=== PATIENT | female | born 1950 | race Caucasian/White ===

== ENCOUNTER 2017-11-06 14:51 | Emergency (ER) | payer MEDICARE, OTHER ==
[~2017-11-06] VITALS: Ht 175.3 cm; Wt 192.0 kg
[~2017-11-06 14:51] MED LIST: ALBIPROI INH; ALBU90OI6 INH; ANAS1; ANAS1 PO; AZIT250 PO; Anastrozole1 GM MC; Anastrozole1 GM PO; BENZ100A PO; CALCA500CH PO; CHOL10002 PO; COMPLETE MULTI1 EAC1; CYCL10; Calcium 600-D1 EACH PO; Diflucan100 MG PO; ESOM20; ESOM20 PO; ESTR1; ESTR2 PO; HEARTBURN RELI150 M1 PO; IBUP600 PO; Ibuprofen Ib200 MG PO; LEVO750 PO; LEVOTHYROXINE; LEVSOD100; LEVSOD100 PO; MULTIVITAMIN PO; MYOCALM; NYQUIL; Norco 5-325 Ta1 EACH PO; OMEP20ER PO; OMEPRAZOLE; ONDA4ODT; OXYB5 PO; OXYC5; Omeprazole20 M1 PO; PROG100; PROG100 PO; PROP60; PROP60 PO; Peridex480 ML; Prilosec Otc20 MG PO; RANI150 PO; RANITIDINE PO; SIMV40 PO; SOLI5 PO; SUCR1 PO; TIZANIDINE HCL4 MG PO; TYLENOL PO; Transderm-Scop1 EACH TOP; VITAMIN D-32000 UNI1 PO
[2017-11-06 17:36] LABS: BASOPHILS ABSOLUTE AUTO 0.05 K/mm3 (0.00-0.23); BASOPHILS PERCENT AUTO 1 % (0-2); EOSINOPHILS ABSOLUTE AUTO 0.28 K/mm3 (0.00-0.68); EOSINOPHILS PERCENT AUTO 5 % (0-6); Hematocrit 40.2 % (33.0-51.0); Hemoglobin 12.7 g/dL (11.5-16.0); IMMATURE GRAN ABSOLUTE AUTO 0.01 K/mm3 (0.00-0.10); IMMATURE GRAN PERCENT AUTO 0 % (0-1); LYMPHOCYTES ABSOLUTE AUTO 1.82 K/mm3 (0.84-5.20); LYMPHOCYTES PERCENT AUTO 34 % (21-46); MONOCYTES ABSOLUTE AUTO 0.36 K/mm3 (0.16-1.47); MONOCYTES PERCENT AUTO 7 % (4-13); Mean Corpuscular HGB 27.4 pg (26.0-34.0); Mean Corpuscular HGB Conc 31.6 g/dL (31.5-36.5); Mean Corpuscular Volume 87 fL (80-100); Mean Platelet Volume 10.1 fL (9.1-12.4); NEUTROPHILS ABSOLUTE AUTO 2.89 K/mm3 (1.96-9.15); NEUTROPHILS PERCENT AUTO 53 % (41-73); Platelet Count 276 K/mm3 (150-400); RDW Coefficient Variation 14.4 % (11.7-14.2); RDW Standard Deviation 45.7 fL (35.1-46.3); Red Blood Cell Count 4.63 M/mm3 (3.80-5.20); White Blood Cell Count 5.41 K/mm3 (4.00-11.30)
[2017-11-06 17:53] LABS: Alanine Aminotransfer (ALT/SGP 29 U/L (12-78); Albumin, Blood 3.8 g/dL (3.4-5.0); Alk Phos 78 U/L (50-136); Anion Gap 8 mmol/L (6-16); Aspartate Aminotrans (AST/SGOT 18 U/L (12-37); Bilirubin, Total 0.2 mg/dL (0.1-1.0); Blood Urea Nitrogen 11 mg/dL (8-24); Bun/Creatinine Ratio 17.6 (12.0-20.0); CO2, Blood 27 mmol/L (21-32); Calcium, Blood 9.1 mg/dL (8.5-10.1); Chloride, Blood 107 mmol/L (98-108); Creatinine, Blood 0.63 mg/dL (0.40-1.00); Globulin, Blood 3.9 g/dL (2.2-4.0); Glomerular Filtration Rate >60 (60-); Glucose, Blood 96 mg/dL (70-99); Potassium, Blood 3.7 mmol/L (3.5-5.5); Sodium, Blood 142 mmol/L (136-145); Total Protein, Blood 7.7 g/dL (6.4-8.2); Troponin I <0.015 ng/mL (0.000-0.040)
[2017-11-06] MEDS ORDERED: CYCL10 PO (19:19)
[2017-11-06] MEDS ORDERED: GABA300 PO (19:19)
== END 2017-11-06 20:22 | disposition home or self-care (01) ==
LOC: ER 14:51
PROVIDERS: Physician Assistant
DX: R53.83 Other fatigue (principal); R53.1 Weakness; E03.9 Hypothyroidism, unspecified
CPT/HCPCS: 71046; 80053; 84443; 84484; 85025; 93005; 93010; 99284

== ENCOUNTER 2018-03-07 13:01 | Emergency (ER) | payer MEDICARE, OTHER ==
[~2018-03-07] VITALS: Ht 165.1 cm; Wt 74.8 kg
[~2018-03-07 13:01] MED LIST changes: +CYCL10 PO; +GABA300 PO
[2018-03-07] MEDS ORDERED: METO25ER PO (13:25)
[2018-03-07] MEDS ORDERED: LISI20 PO (13:25)
[2018-03-07] MEDS ORDERED: Super Calcium600 MG PO (13:26)
[2018-03-07 13:48] LABS: Alanine Aminotransfer (ALT/SGP 38 U/L (12-78); Albumin, Blood 3.8 g/dL (3.4-5.0); Albumin/Globulin Ratio 1.1 (0.8-1.8); Alk Phos 79 U/L (50-136); Anion Gap 8 mmol/L (6-16); Aspartate Aminotrans (AST/SGOT 27 U/L (12-37); Bilirubin, Total 0.3 mg/dL (0.1-1.0); Blood Urea Nitrogen 15 mg/dL (8-24); Bun/Creatinine Ratio 23.7 (12.0-20.0); CO2, Blood 26 mmol/L (21-32); Chloride, Blood 108 mmol/L (98-108); Creatinine, Blood 0.63 mg/dL (0.40-1.00); Globulin, Blood 3.6 g/dL (2.2-4.0); Glomerular Filtration Rate >60 (60-); Glucose, Blood 88 mg/dL (70-99); Potassium, Blood 4.1 mmol/L (3.5-5.5); Sodium, Blood 142 mmol/L (136-145); Total Protein, Blood 7.4 g/dL (6.4-8.2); Troponin I <0.015 ng/mL (0.000-0.040)
[2018-03-07 14:07] LABS: BASOPHILS ABSOLUTE AUTO 0.07 K/mm3 (0.00-0.23); BASOPHILS PERCENT AUTO 1 % (0-2); EOSINOPHILS ABSOLUTE AUTO 0.58 K/mm3 (0.00-0.68); EOSINOPHILS PERCENT AUTO 10 % (0-6); Hematocrit 38.4 % (33.0-51.0); Hemoglobin 12.4 g/dL (11.5-16.0); IMMATURE GRAN ABSOLUTE AUTO 0.02 K/mm3 (0.00-0.10); IMMATURE GRAN PERCENT AUTO 0 % (0-1); LYMPHOCYTES ABSOLUTE AUTO 1.76 K/mm3 (0.84-5.20); LYMPHOCYTES PERCENT AUTO 31 % (21-46); MONOCYTES ABSOLUTE AUTO 0.41 K/mm3 (0.16-1.47); MONOCYTES PERCENT AUTO 7 % (4-13); Mean Corpuscular HGB 28.9 pg (26.0-34.0); Mean Corpuscular HGB Conc 32.3 g/dL (31.5-36.5); Mean Corpuscular Volume 90 fL (80-100); Mean Platelet Volume 9.8 fL (9.1-12.4); NEUTROPHILS ABSOLUTE AUTO 2.81 K/mm3 (1.96-9.15); NEUTROPHILS PERCENT AUTO 50 % (41-73); Platelet Count 246 K/mm3 (150-400); RDW Coefficient Variation 14.8 % (11.7-14.2); RDW Standard Deviation 49.1 fL (35.1-46.3); Red Blood Cell Count 4.29 M/mm3 (3.80-5.20); White Blood Cell Count 5.65 K/mm3 (4.00-11.30)
== END 2018-03-07 17:13 | disposition home or self-care (01) ==
LOC: ER 13:01
PROVIDERS: Physician Assistant
DX: R07.9 Chest pain, unspecified (principal); E03.9 Hypothyroidism, unspecified; K21.9 Gastro-esophageal reflux disease without esophagitis; E78.5 Hyperlipidemia, unspecified; Z88.5 Allergy status to narcotic agent; Z88.0 Allergy status to penicillin; Z88.1 Allergy status to other antibiotic agents; Z88.8 Allergy status to other drugs, medicaments and biological substances; Z79.899 Other long term (current) drug therapy
CPT/HCPCS: 36415; 71046; 80053; 84484; 85025; 93005; 93010; 99284

== ENCOUNTER 2018-05-08 12:09 | Day surgery (SDC) | payer MEDICARE, OTHER ==
[~2018-05-08] VITALS: Ht 167.6 cm; Wt 85.9 kg
[~2018-05-08 12:09] MED LIST changes: +LISI20 PO; +METO25ER PO; +Super Calcium600 MG PO
== END 2018-05-08 14:50 | disposition home or self-care (01) ==
LOC: ORSCSDS 12:09
PROVIDERS: Student in an Organized Health Care Education/Training Program
PROC: 0DB68ZX Excision of Stomach, Via Natural or Artificial Opening Endoscopic, Diagnostic (ICD-10-PCS; principal; 2018-05-08 13:30)
PROC: 0DB58ZX Excision of Esophagus, Via Natural or Artificial Opening Endoscopic, Diagnostic (ICD-10-PCS; principal; 2018-05-08 13:30)
DX: K21.0 Gastro-esophageal reflux disease with esophagitis (principal); K31.7 Polyp of stomach and duodenum; K29.40 Chronic atrophic gastritis without bleeding; K44.9 Diaphragmatic hernia without obstruction or gangrene; J45.909 Unspecified asthma, uncomplicated; K22.4 Dyskinesia of esophagus; E78.5 Hyperlipidemia, unspecified; E03.9 Hypothyroidism, unspecified; R13.10 Dysphagia, unspecified; E66.9 Obesity, unspecified; Z68.30 Body mass index [BMI] 30.0-30.9, adult; Z79.82 Long term (current) use of aspirin; Z79.899 Other long term (current) drug therapy
CPT/HCPCS: 88305; 88342

== ENCOUNTER 2018-12-20 21:21 | Inpatient (IN) | payer MEDICARE, OTHER ==
[~2018-12-20] VITALS: Ht 167.6 cm; Wt 88.5 kg
[2018-12-20 22:12] LABS: BASOPHILS ABSOLUTE AUTO 0.04 K/mm3 (0.00-0.23); BASOPHILS PERCENT AUTO 0 % (0-2); EOSINOPHILS ABSOLUTE AUTO 0.48 K/mm3 (0.00-0.68); EOSINOPHILS PERCENT AUTO 5 % (0-6); Hematocrit 39.1 % (33.0-51.0); Hemoglobin 12.4 g/dL (11.5-16.0); IMMATURE GRAN ABSOLUTE AUTO 0.03 K/mm3 (0.00-0.10); IMMATURE GRAN PERCENT AUTO 0 % (0-1); LYMPHOCYTES ABSOLUTE AUTO 1.65 K/mm3 (0.84-5.20); LYMPHOCYTES PERCENT AUTO 18 % (21-46); MONOCYTES ABSOLUTE AUTO 0.58 K/mm3 (0.16-1.47); MONOCYTES PERCENT AUTO 6 % (4-13); Mean Corpuscular HGB 29.2 pg (26.0-34.0); Mean Corpuscular HGB Conc 31.7 g/dL (31.5-36.5); Mean Corpuscular Volume 92 fL (80-100); Mean Platelet Volume 9.6 fL (9.1-12.4); NEUTROPHILS ABSOLUTE AUTO 6.63 K/mm3 (1.96-9.15); NEUTROPHILS PERCENT AUTO 71 % (41-73); Platelet Count 230 K/mm3 (150-400); RDW Coefficient Variation 14.1 % (11.7-14.2); RDW Standard Deviation 47.5 fL (35.1-46.3); Red Blood Cell Count 4.25 M/mm3 (3.80-5.20); White Blood Cell Count 9.41 K/mm3 (4.00-11.30)
[2018-12-20 22:30] LABS: Alanine Aminotransfer (ALT/SGP 33 U/L (12-78); Albumin, Blood 3.5 g/dL (3.4-5.0); Alk Phos 67 U/L (50-136); Anion Gap 6 mmol/L (6-16); Aspartate Aminotrans (AST/SGOT 18 U/L (12-37); Bilirubin, Total 0.2 mg/dL (0.1-1.0); Blood Urea Nitrogen 10 mg/dL (8-24); Bun/Creatinine Ratio 16.3 (12.0-20.0); CO2, Blood 26 mmol/L (21-32); Calcium, Blood 8.6 mg/dL (8.5-10.1); Chloride, Blood 110 mmol/L (98-108); Creatinine, Blood 0.62 mg/dL (0.40-1.00); Globulin, Blood 3.6 g/dL (2.2-4.0); Glomerular Filtration Rate >60 (60-); Glucose, Blood 129 mg/dL (70-99); Potassium, Blood 3.6 mmol/L (3.5-5.5); Sodium, Blood 142 mmol/L (136-145); Total Protein, Blood 7.1 g/dL (6.4-8.2); Troponin I <0.015 ng/mL (0.000-0.040)
[2018-12-21 00:06] LABS: Influenza A Negative (NEGATIVE); Influenza B Negative (NEGATIVE)
[2018-12-21] MEDS ORDERED: ALBU3IS INH (00:42)
[2018-12-21] MEDS ORDERED: Prednisone20 MG PO (00:42)
[2018-12-21] MEDS ORDERED: PROBIOTIC ACID1.5 MG PO (00:51)
[2018-12-21 01:47] LABS: Anion Gap 8 mmol/L (6-16); Blood Urea Nitrogen 9 mg/dL (8-24); Bun/Creatinine Ratio 15.6 (12.0-20.0); CO2, Blood 24 mmol/L (21-32); Calcium, Blood 7.8 mg/dL (8.5-10.1); Chloride, Blood 113 mmol/L (98-108); Creatinine, Blood 0.58 mg/dL (0.40-1.00); Glomerular Filtration Rate >60 (60-); Glucose, Blood 148 mg/dL (70-99); Potassium, Blood 3.4 mmol/L (3.5-5.5); Sodium, Blood 145 mmol/L (136-145)
[2018-12-21 07:28] LABS: Hematocrit 39.7 % (33.0-51.0); Hemoglobin 12.4 g/dL (11.5-16.0); Mean Corpuscular HGB Conc 31.2 g/dL (31.5-36.5); Mean Corpuscular Volume 93 fL (80-100); Mean Platelet Volume 9.7 fL (9.1-12.4); Platelet Count 245 K/mm3 (150-400); RDW Coefficient Variation 14.5 % (11.7-14.2); RDW Standard Deviation 48.7 fL (35.1-46.3); Red Blood Cell Count 4.28 M/mm3 (3.80-5.20); White Blood Cell Count 8.64 K/mm3 (4.00-11.30)
--- NOTE | 2018-12-21 07:29 | NUR ---
Rn summary: Patient is alert and oriented. Pt is independant in room. Pt does become very SOB/wheezy with any activity. Pt is unable to speak more than a few words at a time. Breath sounds with expiratory wheezes throughout, respiratory therapy feels like wheezes are from upper airway. Respiratory panel obtained and sent to lab. Pt has had a SHI which improved with tylenol but is returning per pt this am. Pt was able to rest a little from 4-6 this am, states woke up wheezy and coughing. O2 on at 2 liters to assist with air recovery. Call light in reach.
[2018-12-21 07:51] LABS: Alanine Aminotransfer (ALT/SGP 32 U/L (12-78); Albumin, Blood 3.6 g/dL (3.4-5.0); Albumin/Globulin Ratio 0.9 (0.8-1.8); Alk Phos 68 U/L (50-136); Anion Gap 9 mmol/L (6-16); Aspartate Aminotrans (AST/SGOT 10 U/L (12-37); Bilirubin, Total 0.4 mg/dL (0.1-1.0); Blood Urea Nitrogen 9 mg/dL (8-24); Bun/Creatinine Ratio 16.6 (12.0-20.0); CO2, Blood 22 mmol/L (21-32); Chloride, Blood 114 mmol/L (98-108); Creatinine, Blood 0.54 mg/dL (0.40-1.00); Glomerular Filtration Rate >60 (60-); Glucose, Blood 178 mg/dL (70-99); Potassium, Blood 3.7 mmol/L (3.5-5.5); Sodium, Blood 145 mmol/L (136-145); Total Protein, Blood 7.6 g/dL (6.4-8.2)
[2018-12-21 08:06] LABS: Adenovirus Not Detected (NOT DETECT); Bordetella pertussis Not Detected (NOT DETECT); Chlamydophila pneumoniae Not Detected (NOT DETECT); Coronavirus 229E Not Detected (NOT DETECT); Coronavirus HKU1 Not Detected (NOT DETECT); Coronavirus NL63 Not Detected (NOT DETECT); Coronavirus OC43 Not Detected (NOT DETECT); Human Metapneumovirus Not Detected (NOT DETECT); Human Rhinovirus/Enterovirus Detected (NOT DETECT); Influenza A Not Detected (NOT DETECT); Influenza A/2009-H1 Not Detected (NOT DETECT); Influenza A/H1 Not Detected (NOT DETECT); Influenza A/H3 Not Detected (NOT DETECT); Influenza B Not Detected (NOT DETECT); Mycoplasma pneumoniae Not Detected (NOT DETECT); Parainfluenza Virus 1 Not Detected (NOT DETECT); Parainfluenza Virus 2 Not Detected (NOT DETECT); Parainfluenza Virus 3 Not Detected (NOT DETECT); Parainfluenza Virus 4 Not Detected (NOT DETECT); Respiratory Syncytial Virus Not Detected (NOT DETECT)
[2018-12-21 14:43] LABS: PCO2 Arterial 40.4 mmHg (35-45); PO2 Arterial 58.4 mmHg (80-100); pH Blood Arterial 7.36 (7.35-7.45)
--- NOTE | 2018-12-21 18:12 | NUR ---
SHIFT SUMMARY PATIENT A&0 X4, INDEPENDENT. C/O OF SOB THROUGHOUT THE SHIFT. O2 @ 2.5L NC SATS >92%. LUNGS WHEEZY THROUGHOUT. TELE SR @ 124. PATIENT RESTED SOME THIS SHIFT. IS AT THE BEDSIDE. TITRATING O2 TO KEEP SATS >92% PER ORDERS. CONT PULSE OX IN PLACE. NO ACUTE CHANGES THIS SHIFT. RN WILL CONTINUE TO MONITOR.
--- NOTE | 2018-12-22 05:54 | NUR ---
SHIFT SUMMARY PT SLEPT WELL T/O NIGHT. AOX4. VSS. DENIES NAUSEA. REPORTS OCCASIONAL SOB W/EXERTION, HOWEVER PT WAS ABLE TO TOLERATE INDEPENDANTLY SHOWERING WITH SITTING ON SHOWER CHAIR W/O SPO2 DROPPING. SPO2 >90% ON 3L NC, LUNGS HAVE INSPIRATORY/EXPIRATORY WHEEZES T/O LOBES, E/U BREATHING, REPORTS SHE IS ABLE TO COUGH UP MORE MUCUS TODAY & IT IS A LIGHT GREEN IN COLOR. PT REPORTS HAVING A 5/10 HEADACHE THIS AM & WAS MEDICATED 1X W/TYLENOL. CALL LIGHT IS IN REACH & I WILL CONTINUE TO MONITOR.
--- NOTE | 2018-12-22 18:28 | NUR ---
SHIFT SUMMARY TELE SHOWED ST AT A RATE OF 120-140 THIS SHIFT. PT STATED SHE FELT THAT HER CHEST GOT A BIT OF PRESSURE W THE HIGHER HRS, DR RAMAN NOTIFIED. EKG AND TROPONIN NEG. HELD OFF OF DAYTIME RT TREATMENTS WITH QUITE A BIT OF IMPROVEMENT IN HER HR, DOWMN AROUND 105-110. PT WEANED DOWN TO RA THIS SHIFT, LUNGS A BIT WHEEZY. INDEP IN ROOM. TOOK MEDS PRESCRIBED
--- NOTE | 2018-12-23 05:09 | NUR ---
VSS, AFEBRILE, A/O, PT C/O MUSCLE SPASMS IN HER SHOULDER/NECK AREA. MEDICATED PER ORDER. PT ALSO STATES THAT SHE TAKES 600 MG OF GABAPENTIN Q HS AT HOME. SHE REFUSED THE 300MG THAT WAS OFFERED IN THE A.M., AND THE REMAINING 300 MG AT 2100 WAS NOT ENOUGH TO TREAT HER PAIN. PT IS EAGER TO GO HOME AND BELIEVES THAT SHE MIGHT BE D/C'D TODAY. LUNGS ARE STILL VERY TIGHT AND WHEEZY.
[2018-12-23 05:36] LABS: BASOPHILS ABSOLUTE AUTO 0.01 K/mm3 (0.00-0.23); BASOPHILS PERCENT AUTO 0 % (0-2); EOSINOPHILS PERCENT AUTO 0 % (0-6); Hematocrit 36.2 % (33.0-51.0); Hemoglobin 11.3 g/dL (11.5-16.0); IMMATURE GRAN ABSOLUTE AUTO 0.07 K/mm3 (0.00-0.10); IMMATURE GRAN PERCENT AUTO 1 % (0-1); LYMPHOCYTES ABSOLUTE AUTO 0.93 K/mm3 (0.84-5.20); LYMPHOCYTES PERCENT AUTO 7 % (21-46); MONOCYTES ABSOLUTE AUTO 0.37 K/mm3 (0.16-1.47); MONOCYTES PERCENT AUTO 3 % (4-13); Mean Corpuscular HGB 28.8 pg (26.0-34.0); Mean Corpuscular HGB Conc 31.2 g/dL (31.5-36.5); Mean Corpuscular Volume 92 fL (80-100); Mean Platelet Volume 9.8 fL (9.1-12.4); NEUTROPHILS ABSOLUTE AUTO 11.76 K/mm3 (1.96-9.15); NEUTROPHILS PERCENT AUTO 90 % (41-73); Platelet Count 267 K/mm3 (150-400); RDW Coefficient Variation 14.7 % (11.7-14.2); RDW Standard Deviation 50.2 fL (35.1-46.3); Red Blood Cell Count 3.92 M/mm3 (3.80-5.20); White Blood Cell Count 13.14 K/mm3 (4.00-11.30)
[2018-12-23 06:05] LABS: Anion Gap 4 mmol/L (6-16); Blood Urea Nitrogen 24 mg/dL (8-24); Bun/Creatinine Ratio 35.3 (12.0-20.0); CO2, Blood 29 mmol/L (21-32); Calcium, Blood 8.9 mg/dL (8.5-10.1); Chloride, Blood 110 mmol/L (98-108); Creatinine, Blood 0.68 mg/dL (0.40-1.00); Glomerular Filtration Rate >60 (60-); Glucose, Blood 125 mg/dL (70-99); Potassium, Blood 4.3 mmol/L (3.5-5.5); Sodium, Blood 143 mmol/L (136-145)
[2018-12-23] MEDS ORDERED: LEVFLO500 PO (13:48)
[2018-12-23] MEDS ORDERED: PRED10 PO (13:51)
[2018-12-23] MEDS ORDERED: LEVA1.25 INH (13:51)
--- NOTE | 2018-12-23 14:59 | NUR ---
DISCHARGE DISCHARGE INSTRUCTIONS, MEDICATION LIST AND FOLLOW UP APPOINTMENT REVIEWED WITH PT AND HER SPOUSE. QUESTIONS/CONCERNS ANSWERED. NEW SCRIPS WERE FAXED TO [facility] PER PT PREFERENCE. PT AND SPOUSE BOTH VERBALLY INDICATED UNDERSTANDING OF ALL INSTRUCTIONS RECEIVED. PT ESCORTED OUT VIA W/C BY VOLUNTEER
== END 2018-12-23 14:21 | disposition home or self-care (01) | DRG 189 ==
LOC: ER 21:21 → MEDS 21:22 → ER 21:22 → MEDS 21:22 → ER 12-21 02:51 → MEDS 12-21 02:51 → ENPENDDIS 12-23 12:00 → MEDS 12-23 14:21
PROVIDERS: Emergency Medicine; Family Medicine; Internal Medicine; Physician Assistant; ADMIT Internal Medicine
DX: J96.01 Acute respiratory failure with hypoxia (principal); J45.901 Unspecified asthma with (acute) exacerbation; A04.72 Enterocolitis due to Clostridium difficile, not specified as recurrent; J20.9 Acute bronchitis, unspecified; B97.89 Other viral agents as the cause of diseases classified elsewhere; Z85.3 Personal history of malignant neoplasm of breast; E78.5 Hyperlipidemia, unspecified; E03.9 Hypothyroidism, unspecified; I10 Essential (primary) hypertension; G62.9 Polyneuropathy, unspecified; K21.9 Gastro-esophageal reflux disease without esophagitis; R00.0 Tachycardia, unspecified; T48.6X5A Adverse effect of antiasthmatics, initial encounter
CPT/HCPCS: 36415; 36600; 71046; 80048; 80053; 82803; 84484; 85025; 85027; 87070; 87205; 87486; 87581; 87633; 87798; 87804; 93005; 93010; 94640; 94644; 94667; 94668; 94760; 94762; 96361; 96365; 96375; 99284-25; J1650; J1956; J2920; J2930; J3475; J7030; J7512

== ENCOUNTER → 2019-03-27 | Outpatient (CLI) | payer MEDICARE, OTHER ==
[~2019-03-27] MED LIST changes: +ALBU3IS INH; +Aspirin EC81 MG PO; +COMPLETE MULTI1 EAC1 PO; +Coenzyme Q10100 M1 PO; +LEVA1.25 INH; +LEVFLO500 PO; +Neurontin600 MG PO; +PRED10 PO; +PROBIOTIC ACID1.5 MG PO; +Prednisone20 MG PO; +Ranitidine HCl300 MG PO; +Simvastatin40 MG PO; +VITAMIN D32000 UNI1 PO; +Zestril40 MG PO
== END | disposition home or self-care (01) ==
LOC: LAB SHORT 13:27 → LAB EV 13:27
DX: N39.0 Urinary tract infection, site not specified (principal)
CPT/HCPCS: 87077; 87086; 87186

== ENCOUNTER 2019-05-11 06:44 | Day surgery (SDC) | payer MEDICARE, OTHER ==
[~2019-05-11] VITALS: Ht 165.1 cm; Wt 88.1 kg
[2019-05-11] MEDS ORDERED: ANAS1 (07:17)
== END 2019-05-11 08:46 | disposition home or self-care (01) ==
LOC: ORSCSDS 06:44
PROVIDERS: Student in an Organized Health Care Education/Training Program
PROC: 0DB68ZX Excision of Stomach, Via Natural or Artificial Opening Endoscopic, Diagnostic (ICD-10-PCS; principal; 2019-05-11 08:00)
PROC: 0DB58ZX Excision of Esophagus, Via Natural or Artificial Opening Endoscopic, Diagnostic (ICD-10-PCS; principal; 2019-05-11 08:00)
DX: K31.89 Other diseases of stomach and duodenum (principal); K29.70 Gastritis, unspecified, without bleeding; K31.7 Polyp of stomach and duodenum; K44.9 Diaphragmatic hernia without obstruction or gangrene; K21.9 Gastro-esophageal reflux disease without esophagitis; J45.909 Unspecified asthma, uncomplicated; E03.9 Hypothyroidism, unspecified; Z79.899 Other long term (current) drug therapy
CPT/HCPCS: 88305; 88341; 88342; J0461; J2405; J2704; J7120

== ENCOUNTER → 2019-07-06 | Outpatient (CLI) | payer MEDICARE, OTHER | END | disposition home or self-care (01) | LOC: LAB SHORT 08:12 → PLD 08:12 | DX: B35.1 Tinea unguium (principal) | CPT/HCPCS: 88305; 88312 ==

== ENCOUNTER → 2019-08-30 | Outpatient (CLI) | payer MEDICARE, OTHER | END | disposition home or self-care (01) | LOC: LAB EV 18:50 | DX: R19.7 Diarrhea, unspecified (principal) | CPT/HCPCS: 87493 ==

== ENCOUNTER → 2019-09-08 | Outpatient (CLI) | payer MEDICARE, OTHER | END | disposition home or self-care (01) | LOC: LAB SHORT 18:13 → LAB 18:13 | DX: N39.0 Urinary tract infection, site not specified (principal) | CPT/HCPCS: 87077; 87086; 87186 ==

== ENCOUNTER 2019-10-11 23:09 | Emergency (ER) | payer MEDICARE, OTHER ==
[~2019-10-11] VITALS: Ht 165.1 cm; Wt 85.7 kg
== END 2019-10-12 04:06 | disposition home or self-care (01) ==
LOC: ER 23:09
DX: M54.6 Pain in thoracic spine (principal); I10 Essential (primary) hypertension; Z88.1 Allergy status to other antibiotic agents; Z88.5 Allergy status to narcotic agent; Z88.8 Allergy status to other drugs, medicaments and biological substances; Z79.899 Other long term (current) drug therapy; Z79.82 Long term (current) use of aspirin; J45.909 Unspecified asthma, uncomplicated
CPT/HCPCS: 72070; 96372; 99283-25; J1885

== ENCOUNTER 2019-11-20 06:00 | Day surgery (SDC) | payer MEDICARE, OTHER ==
[~2019-11-20] VITALS: Ht 165.1 cm; Wt 86.8 kg
[~2019-11-20 06:00] MED LIST changes: +ANASTROZOLE PO; +Flovent 110 MCG12 GM INH; +MONT10T PO; +PROPIONATE INH; +TERB250 PO
--- NOTE | 2019-11-20 07:08 | NUR ---
History, Chart, Medications and Allergies reviewed before start of procedure. Lungs clear T/O to Auscultation. Patient confirms NPO status and agrees with scheduled surgery. Patient reports completing Chlorhexadine shower X2 prior to admission to hospital. Pre-Op teaching done. Pt verbalizes understanding.
--- NOTE | 2019-11-20 08:38 | NUR ---
11/20/19 0838 Makenna So PLACED BY Frantz FERRIS
--- NOTE | 2019-11-20 10:55 | NUR ---
PT BIOX ABOUT 89% ON ROOM. ENCOURAGED DEEP BREATHING. PT PLACED ON O2 NC AT 3L/M.
--- NOTE | 2019-11-20 11:00 | NUR ---
COFFEE PROVIDED BY HER . PT DENIES PAIN OR NAUSEA AT THIS TIME. Dressing to procedure site clean, dry, intact with no visible drainage, swelling, erythema or bruising noted. PT GIVEN PUDDING TO ATTEMPT TO EAT.
--- NOTE | 2019-11-20 11:20 | NUR ---
PT DENIES PAIN. C/O NAUSEA AT THIS TIME AFTER DRINKING SOME COFFEE. PT GIVEN ZOFRAN 4MG IV. O2 NC DECREASED TO 1LNC TO EVALUATE PTS BREATHING. AT BEDSIDE.
--- NOTE | 2019-11-20 11:23 | NUR ---
PTS BED LAYED BACK FOR COMFORT. COOL WASH CLOTH PLACED TO FOREHEAD.
--- NOTE | 2019-11-20 11:59 | NUR ---
PT TO BATHROOM VIA WHEELCHAIR. REPORTS NAUSEA BETTER BUT NOT RESOLVED. REPORTS PAIN IS 5-6/10 AT THIS TIME. PT GIVEN REGLAN IV AND FENTANYL 25MCG SLOW IV PUSH. PT CONTINUES ON 1L NC AND TAKING DEEP BREATHES. BIOX BETWEEN 91%- 95% ON 1L NC.
--- NOTE | 2019-11-20 12:10 | NUR ---
PT WITH CONTINUED BIOX OF 89-93% ON 1L NC. SPOKE WITH DR. GARZA. ORDER FOR A&A NEB TREATMENT AND INSTRUCTIONS FOR AGGRESIVE INSENTIVE SPIROMETER. PT HAS BEEN ABLE TO EAT 4 SALTINE CRACKERS AND REPORTS NAUSEA IMPROVED.
--- NOTE | 2019-11-20 12:19 | NUR ---
PT GIVEN PO NORCO FOR PAIN AND A&A NEB TREATMENT STARTED.
--- NOTE | 2019-11-20 12:28 | NUR ---
PT GIVEN INSTRUCTIONS ON INSENTIVE SPIROMETER AND ABLE TO DEMONSTRATE. PT REPORTS PAIN AND NAUSEA UNDER CONTROL AT THIS TIMME.
--- NOTE | 2019-11-20 12:35 | NUR ---
REPORT TO BARBER HERNANDEZ TO ASSUME CARE OF PATIENT AT THIS TIME.
--- NOTE | 2019-11-20 13:09 | NUR ---
Discharge instructions reviewed with patient. Patient verbalizes understanding. Copy given to patient to take home. Patient States Post-Procedure ride home has been arranged. Discharged via wheelchair to private car for ride home.
== END 2019-11-20 23:42 | disposition home or self-care (01) ==
LOC: ORSCMMR 06:00 → ORD 07:30 → ORSCMMR 23:42
PROVIDERS: Surgery
PROC: 0WQF0ZZ Repair Abdominal Wall, Open Approach (ICD-10-PCS; principal; 2019-11-20 07:30)
PROC: 8E0W4CZ Robotic Assisted Procedure of Trunk Region, Percutaneous Endoscopic Approach (ICD-10-PCS; principal; 2019-11-20 07:30)
PROC: 0YU64JZ Supplement Left Inguinal Region with Synthetic Substitute, Percutaneous Endoscopic Approach (ICD-10-PCS; principal; 2019-11-20 07:30)
DX: K40.91 Unilateral inguinal hernia, without obstruction or gangrene, recurrent (principal); K42.9 Umbilical hernia without obstruction or gangrene; I10 Essential (primary) hypertension; E78.5 Hyperlipidemia, unspecified; J45.909 Unspecified asthma, uncomplicated; E03.9 Hypothyroidism, unspecified; Z86.73 Personal history of transient ischemic attack (TIA), and cerebral infarction without residual deficits; Z79.899 Other long term (current) drug therapy; Z79.82 Long term (current) use of aspirin
CPT/HCPCS: 49651; 49585; S2900; A9270-GY; C1781; J0690; J1100; J1885; J2250; J2405; J2704; J2710; J2765; J3010; J7120

== ENCOUNTER → 2019-11-26 | Outpatient (CLI) | payer MEDICARE, OTHER ==
[2019-11-26 11:32] LABS: Source, Urine Clean Catch
[2019-11-26 12:53] LABS: Bilirubin, Urine Neg (Neg); Blood, Urine Neg (Neg); Glucose Qualitative, Urine Neg (Neg); Ketones, Urine Neg (Neg); Leukocyte Esterase, Urine Neg (Neg); Nitrite, Urine Neg (Neg); Protein, Urine Neg (Neg); Specific Gravity, Urine 1.015 (1.003-1.022); Urobilinogen, Urine NORM (Normal)
[2019-11-26 13:02] LABS: Appearance, Urine Clear (Clear); Color, Urine Yellow (P-Yellow)
== END | disposition home or self-care (01) ==
LOC: LAB 11:29 → LAB SHORT 11:29
PROVIDERS: Surgery
DX: N99.89 Other postprocedural complications and disorders of genitourinary system (principal); R39.89 Other symptoms and signs involving the genitourinary system; R35.0 Frequency of micturition
CPT/HCPCS: 81003

== ENCOUNTER → 2020-04-26 | Outpatient (CLI) | payer MEDICARE, OTHER | LOC: LAB SHORT 17:40 → LAB EV 17:40 | DX: Z20.828 Contact with and (suspected) exposure to other viral communicable diseases (principal) | CPT/HCPCS: U0003 ==

== ENCOUNTER → 2020-07-18 | Outpatient (CLI) | payer MEDICARE, OTHER ==
[2020-07-19 15:07] LABS: HPV 16 Negative (Negative); HPV 18 Negative (Negative); HPV OTHER HR TYPES Negative (Negative)
== END | disposition home or self-care (01) ==
LOC: LAB SHORT 12:20 → LAB 12:20
PROVIDERS: Obstetrics & Gynecology
DX: Z01.419 Encounter for gynecological examination (general) (routine) without abnormal findings (principal)
CPT/HCPCS: 87624; G0123

== ENCOUNTER 2020-08-30 11:42 | Day surgery (SDC) | payer MEDICARE, OTHER ==
[~2020-08-30] VITALS: Ht 165.1 cm; Wt 79.3 kg
[2020-08-30] MEDS ORDERED: ANASTROZOLE1 M1 PO (12:05)
--- NOTE | 2020-08-30 13:24 | NUR ---
08/30/20 1324 Kylee Torres SIMETHICONE USED DURING PROCEDURE.
== END 2020-08-30 14:16 | disposition home or self-care (01) ==
LOC: ORSCSDS 11:42
PROVIDERS: Surgery
PROC: 0DBC8ZX Excision of Ileocecal Valve, Via Natural or Artificial Opening Endoscopic, Diagnostic (ICD-10-PCS; principal; 2020-08-30 13:00)
DX: Z12.11 Encounter for screening for malignant neoplasm of colon (principal); Z86.010 Personal history of colon polyps; K57.30 Diverticulosis of large intestine without perforation or abscess without bleeding; K64.8 Other hemorrhoids; I10 Essential (primary) hypertension; E03.9 Hypothyroidism, unspecified; K21.9 Gastro-esophageal reflux disease without esophagitis; J45.909 Unspecified asthma, uncomplicated; Z79.82 Long term (current) use of aspirin; Z79.899 Other long term (current) drug therapy
CPT/HCPCS: 88305; J2405; J2704; J7120

== ENCOUNTER 2020-10-06 10:51 | Day surgery (SDC) | payer MEDICARE, OTHER ==
[~2020-10-06] VITALS: Ht 165.1 cm; Wt 79.2 kg
[~2020-10-06 10:51] MED LIST changes: +ANASTROZOLE1 M1 PO; +BUDE.25 INH; +CALCIUM PO; +VITAMIN D310 MC4 PO
--- NOTE | 2020-10-06 12:10 | NUR ---
Ambulatory in Day Surgery History, Chart, Medications and Allergies reviewed before start of procedure.Lungs clear T/O to Auscultation. Patient confirms NPO status and agrees with scheduled surgery. Pre-Op teaching done. Pt verbalizes understanding.
--- NOTE | 2020-10-06 17:33 | NUR ---
REPORT RECEIVED FROM APOORVA JAIMESU RN
--- NOTE | 2020-10-06 18:27 | NUR ---
POST OP: PT TO UNIT AT 1745, UPON ASSESSMENT PT IS DROWSY, AWAKENS TO VOICE. ORIENTED X4 AND EASILY GOES BACK TO SLEEP. SURGICAL SITES WNL. VSS. PT AT BEDSIDE. CALL LIGHT IN REACH, WILL CTM AND REPORT TO RICCARDO RN.
--- NOTE | 2020-10-07 04:27 | NUR ---
SHIFT SUMMARY: PT POD#1 FOR LAP HERNIA REPAIR. A&O X4. DROWSY IN BEGINNING OF SHIFT BUT NOW MORE ALERT. ABD SOFT, LAP SITES X5 C/D/I WITH WOUND GLUE. HYPOACTIVE BT THROUGHOUT. PT REPORTS PASSING A SMALL AMOUNT OF FLATUS. PT REPORTING MILD TO MODERATE PAIN IN ABD. MOSTLY C/O NAUSEA OVER NIGHT. REGLAN AND PHENERGAN MOST EFFECTIVE. PT SBA W/FWW TO BATHROOM. VOIDING WELL. PT HAS BEEN NPO BUT WILL ADA TOLERATED THIS MORNING FOR BREAKFAST.
[2020-10-07] MEDS ORDERED: HYDR1TAB94 PO (15:29)
[2020-10-07] MEDS ORDERED: METO10 PO (15:30)
[2020-10-07] MEDS ORDERED: ONDA4ODT MM (15:31)
--- NOTE | 2020-10-07 16:59 | NUR ---
SUMMARY: PACKET PRINTED AND PT EDUCATED. SCRIPTS SENT WITH PT. LEFT UNIT VIA WHEELCHAIR WITH THIS RN AT ABOUT 1650.
== END 2020-10-07 17:19 | disposition home or self-care (01) ==
LOC: ORSCMMR 10:51 → ORD 13:30 → ORSCMMR 13:30 → SURS 17:40 → ORSCMMR 10-07 17:19
PROVIDERS: Surgery
PROC: 0BQT4ZZ Repair Diaphragm, Percutaneous Endoscopic Approach (ICD-10-PCS; principal; 2020-10-06 12:30)
PROC: 0DV44ZZ Restriction of Esophagogastric Junction, Percutaneous Endoscopic Approach (ICD-10-PCS; principal; 2020-10-06 12:30)
DX: K44.9 Diaphragmatic hernia without obstruction or gangrene (principal); K21.9 Gastro-esophageal reflux disease without esophagitis; I10 Essential (primary) hypertension; J45.909 Unspecified asthma, uncomplicated; E03.9 Hypothyroidism, unspecified; E78.5 Hyperlipidemia, unspecified; Z79.899 Other long term (current) drug therapy; Z79.82 Long term (current) use of aspirin
CPT/HCPCS: A9270; J0690; J1100; J1885; J2250; J2370; J2405; J2550; J2704; J2765; J3010; J7120

== ENCOUNTER → 2020-10-23 | Outpatient (CLI) | payer MEDICARE, OTHER ==
[~2020-10-23] MED LIST changes: +AZELASTINE205.5 MCG1 NS; +FLUTICASONE-SA1 EAC8 IH; +HYDR1TAB94 PO; +METO10 PO; +ONDA4ODT MM
== END | disposition home or self-care (01) ==
LOC: LAB SHORT 17:03 → LAB EV 17:03
DX: J02.9 Acute pharyngitis, unspecified (principal)
CPT/HCPCS: 87081

== ENCOUNTER 2021-01-29 09:53 | Emergency (ER) | payer MEDICARE, OTHER ==
[~2021-01-29] VITALS: Ht 165.1 cm; Wt 75.8 kg
[~2021-01-29 09:53] MED LIST changes: -AZELASTINE205.5 MCG1 NS; -FLUTICASONE-SA1 EAC8 IH
[2021-01-29] MEDS ORDERED: FLUTICASONE-SA1 EAC8 IH (10:10)
[2021-01-29] MEDS ORDERED: AZELASTINE205.5 MCG1 NS (10:10)
[2021-01-29 10:33] LABS: BASOPHILS ABSOLUTE AUTO 0.06 K/mm3 (0.00-0.23); BASOPHILS PERCENT AUTO 1 % (0-2); EOSINOPHILS PERCENT AUTO 9 % (0-6); Hematocrit 39.6 % (33.0-51.0); Hemoglobin 12.6 g/dL (11.5-16.0); IMMATURE GRAN PERCENT AUTO 0 % (0-1); LYMPHOCYTES ABSOLUTE AUTO 1.44 K/mm3 (0.84-5.20); LYMPHOCYTES PERCENT AUTO 33 % (21-46); MONOCYTES ABSOLUTE AUTO 0.35 K/mm3 (0.16-1.47); MONOCYTES PERCENT AUTO 8 % (4-13); Mean Corpuscular HGB 29.6 pg (26.0-34.0); Mean Corpuscular HGB Conc 31.8 g/dL (31.5-36.5); Mean Corpuscular Volume 93 fL (80-100); Mean Platelet Volume 9.6 fL (9.1-12.4); NEUTROPHILS ABSOLUTE AUTO 2.18 K/mm3 (1.96-9.15); NEUTROPHILS PERCENT AUTO 49 % (41-73); Platelet Count 241 K/mm3 (150-400); RDW Standard Deviation 51.3 fL (35.1-46.3); Red Blood Cell Count 4.26 M/mm3 (3.80-5.20); White Blood Cell Count 4.43 K/mm3 (4.00-11.30)
[2021-01-29 10:56] LABS: Alanine Aminotransfer (ALT/SGP 30 U/L (12-78); Albumin, Blood 3.7 g/dL (3.4-5.0); Albumin/Globulin Ratio 1.1 (0.8-1.8); Alk Phos 63 U/L (50-136); Anion Gap 4 mmol/L (6-16); Aspartate Aminotrans (AST/SGOT 22 U/L (12-37); Bilirubin, Total 0.5 mg/dL (0.1-1.0); Blood Urea Nitrogen 14 mg/dL (8-24); Bun/Creatinine Ratio 21.6 (12.0-20.0); CO2, Blood 26 mmol/L (21-32); Calcium, Blood 8.7 mg/dL (8.5-10.1); Chloride, Blood 112 mmol/L (98-108); Creatinine, Blood 0.65 mg/dL (0.40-1.00); Globulin, Blood 3.5 g/dL (2.2-4.0); Glomerular Filtration Rate >60 (60-); Glucose, Blood 82 mg/dL (70-99); Potassium, Blood 3.9 mmol/L (3.5-5.5); Sodium, Blood 142 mmol/L (136-145); Total Protein, Blood 7.2 g/dL (6.4-8.2); Troponin I <0.015 ng/mL (0.000-0.040)
== END 2021-01-29 14:03 | disposition home or self-care (01) ==
LOC: ER 09:53
PROVIDERS: Emergency Medicine
DX: R07.9 Chest pain, unspecified (principal); I10 Essential (primary) hypertension; E03.9 Hypothyroidism, unspecified; E78.5 Hyperlipidemia, unspecified; Z79.899 Other long term (current) drug therapy; Z88.5 Allergy status to narcotic agent; Z88.0 Allergy status to penicillin; Z88.1 Allergy status to other antibiotic agents
CPT/HCPCS: 36415; 71046; 80053; 83735; 83880; 84484; 85025; 93005; 93010; 99284-25

== ENCOUNTER → 2021-03-21 | Outpatient (CLI) | payer MEDICARE, OTHER ==
[~2021-03-21] MED LIST changes: +AZELASTINE205.5 MCG1 NS; +FLUTICASONE-SA1 EAC8 IH
== END ==
LOC: LAB SHORT 15:24 → LAB 15:24
DX: D48.5 Neoplasm of uncertain behavior of skin (principal)
CPT/HCPCS: 88305

== ENCOUNTER 2021-04-05 11:47 | Emergency (ER) | payer MEDICARE, OTHER ==
[~2021-04-05] VITALS: Ht 165.1 cm; Wt 71.2 kg
== END 2021-04-05 12:46 | disposition home or self-care (01) ==
LOC: ER 11:47
DX: M54.2 Cervicalgia (principal); G89.29 Other chronic pain; R55 Syncope and collapse; Z79.82 Long term (current) use of aspirin; Z88.5 Allergy status to narcotic agent; Z88.8 Allergy status to other drugs, medicaments and biological substances; Z79.899 Other long term (current) drug therapy
CPT/HCPCS: 93005; 93010; 99283-25

== ENCOUNTER 2021-10-25 14:34 | Emergency (ER) | payer MEDICARE, OTHER ==
[~2021-10-25] VITALS: Ht 167.6 cm; Wt 69.0 kg
[2021-10-25 17:12] LABS: BASOPHILS ABSOLUTE AUTO 0.06 K/mm3 (0.00-0.23); BASOPHILS PERCENT AUTO 1 % (0-2); EOSINOPHILS PERCENT AUTO 7 % (0-6); Hemoglobin 15.2 g/dL (11.5-16.0); IMMATURE GRAN ABSOLUTE AUTO 0.01 K/mm3 (0.00-0.10); IMMATURE GRAN PERCENT AUTO 0 % (0-1); LYMPHOCYTES ABSOLUTE AUTO 1.25 K/mm3 (0.84-5.20); LYMPHOCYTES PERCENT AUTO 17 % (21-46); MONOCYTES PERCENT AUTO 7 % (4-13); Mean Corpuscular HGB 31.2 pg (26.0-34.0); Mean Corpuscular Volume 95 fL (80-100); Mean Platelet Volume 9.3 fL (9.1-12.4); NEUTROPHILS ABSOLUTE AUTO 5.25 K/mm3 (1.96-9.15); NEUTROPHILS PERCENT AUTO 69 % (41-73); Platelet Count 278 K/mm3 (150-400); RDW Coefficient Variation 14.1 % (11.7-14.2); Red Blood Cell Count 4.87 M/mm3 (3.80-5.20); White Blood Cell Count 7.57 K/mm3 (4.00-11.30)
[2021-10-25 17:35] LABS: Alanine Aminotransfer (ALT/SGP 32 U/L (12-78); Albumin, Blood 4.3 g/dL (3.4-5.0); Albumin/Globulin Ratio 1.1 (0.8-1.8); Alk Phos 59 U/L (50-136); Anion Gap 7 mmol/L (6-16); Aspartate Aminotrans (AST/SGOT 19 U/L (12-37); Bilirubin, Total 0.6 mg/dL (0.1-1.0); Blood Urea Nitrogen 14 mg/dL (8-24); Bun/Creatinine Ratio 18.8 (12.0-20.0); CO2, Blood 26 mmol/L (21-32); Calcium, Blood 9.9 mg/dL (8.5-10.1); Chloride, Blood 108 mmol/L (98-108); Creatinine, Blood 0.75 mg/dL (0.40-1.00); Glomerular Filtration Rate >60 (60-); Glucose, Blood 106 mg/dL (70-99); Potassium, Blood 3.9 mmol/L (3.5-5.5); Sodium, Blood 141 mmol/L (136-145); Total Protein, Blood 8.3 g/dL (6.4-8.2)
[2021-10-25 18:27] LABS: Bilirubin, Urine Neg (Neg); Blood, Urine 5+ (Neg); Color, Urine Yellow (P-Yellow); Glucose Qualitative, Urine Neg (Neg); Ketones, Urine 3+ (Neg); Leukocyte Esterase, Urine Neg (Neg); Nitrite, Urine Neg (Neg); Protein, Urine Neg (Neg); Urobilinogen, Urine NORM (Normal); pH, Urine 6.5 (5.0-8.0)
[2021-10-25 18:49] LABS: Appearance, Urine Hazy (Clear)
[2021-10-25 18:54] LABS: Source, Urine Condom Cath
[2021-10-25 18:56] LABS: Bacteria Few /hpf; Red Blood Cells, Urine 50-100 /hpf (0-2); Squamous Epithelial Cells Few /hpf (Few); White Blood Cells, Urine 0-2 /hpf (0-5)
[2021-10-25] MEDS ORDERED: HYDR1TAB94 PO (19:05)
== END 2021-10-25 19:43 | disposition home or self-care (01) ==
LOC: ER 14:34
PROVIDERS: Physician Assistant
DX: N13.2 Hydronephrosis with renal and ureteral calculous obstruction (principal); Z88.5 Allergy status to narcotic agent; Z88.0 Allergy status to penicillin; Z88.8 Allergy status to other drugs, medicaments and biological substances; Z88.1 Allergy status to other antibiotic agents; Z88.2 Allergy status to sulfonamides; Z79.899 Other long term (current) drug therapy; Z79.82 Long term (current) use of aspirin; E03.9 Hypothyroidism, unspecified; J45.909 Unspecified asthma, uncomplicated; I10 Essential (primary) hypertension; E78.5 Hyperlipidemia, unspecified
CPT/HCPCS: 36415; 74176; 76857; 80053; 81001; 83690; 85025; A9270; J1885

== ENCOUNTER → 2021-10-31 | Outpatient (CLI) | payer MEDICARE, OTHER ==
[~2021-10-31] MED LIST changes: +Deltasone 10 mg10 MG PO; +LEVALBUTER1.25 MG/01 INH; +PROMETHAZINE12.5 M1 PO; +SYMBICORT 160-4.6 GM
[2021-11-06 14:10] LABS: CALCIUM OXALATE MONOHYDRATE 10 % (.); COLOR Brown (.); HYDROXYAPATITE 90 % (.); SIZE 2x2 mm (.); SOURCE Kidney (.); WEIGHT 6 mg (.)
== END | disposition home or self-care (01) ==
LOC: LAB SHORT 10:52
PROVIDERS: Hospitalist
DX: N20.0 Calculus of kidney (principal)
CPT/HCPCS: 82365

== ENCOUNTER 2021-11-09 10:20 | Emergency (ER) | payer MEDICARE, OTHER ==
[~2021-11-09] VITALS: Ht 172.7 cm; Wt 72.6 kg
[~2021-11-09 10:20] MED LIST changes: -Deltasone 10 mg10 MG PO; -LEVALBUTER1.25 MG/01 INH; -PROMETHAZINE12.5 M1 PO; -SYMBICORT 160-4.6 GM
[2021-11-09] MEDS ORDERED: LEVALBUTER1.25 MG/01 INH (11:07)
[2021-11-09] MEDS ORDERED: SYMBICORT 160-4.6 GM (11:08)
[2021-11-10] MEDS ORDERED: PROMETHAZINE12.5 M1 PO (05:48)
[2021-11-10] MEDS ORDERED: Deltasone 10 mg10 MG PO (05:48)
== END 2021-11-09 13:16 | disposition home or self-care (01) ==
LOC: ER 10:20
DX: M54.2 Cervicalgia (principal); Z88.5 Allergy status to narcotic agent; Z88.0 Allergy status to penicillin; Z88.1 Allergy status to other antibiotic agents; Z88.2 Allergy status to sulfonamides; Z79.899 Other long term (current) drug therapy; Z79.82 Long term (current) use of aspirin; E03.9 Hypothyroidism, unspecified; I10 Essential (primary) hypertension; J45.909 Unspecified asthma, uncomplicated; E78.00 Pure hypercholesterolemia, unspecified
CPT/HCPCS: 96372; 99283-25; A9270; J1885

== ENCOUNTER 2021-11-10 03:53 | Emergency (ER) | payer MEDICARE, OTHER ==
[~2021-11-10] VITALS: Ht 165.1 cm; Wt 72.6 kg
[~2021-11-10 03:53] MED LIST changes: +LEVALBUTER1.25 MG/01 INH; +SYMBICORT 160-4.6 GM
[2021-11-10] MEDS ORDERED: Deltasone 10 mg10 MG PO (05:48)
[2021-11-10] MEDS ORDERED: PROMETHAZINE12.5 M1 PO (05:48)
== END 2021-11-10 07:41 | disposition home or self-care (01) ==
LOC: ER 03:53
DX: M54.12 Radiculopathy, cervical region (principal); G89.29 Other chronic pain; R11.0 Nausea; Z79.82 Long term (current) use of aspirin; Z79.899 Other long term (current) drug therapy; Z98.1 Arthrodesis status; Z88.5 Allergy status to narcotic agent; Z88.1 Allergy status to other antibiotic agents; Z88.2 Allergy status to sulfonamides; Z88.8 Allergy status to other drugs, medicaments and biological substances
CPT/HCPCS: 72125; 93005; 93010; 96374; 96375; 99284-25; J1885; J2765

== ENCOUNTER 2022-01-14 22:34 | Emergency (ER) | payer MEDICARE, OTHER ==
[~2022-01-14] VITALS: Ht 165.1 cm; Wt 73.5 kg
[~2022-01-14 22:34] MED LIST changes: +Deltasone 10 mg10 MG PO; +PROMETHAZINE12.5 M1 PO
[2022-01-15] MEDS ORDERED: METO10 PO (02:57)
== END 2022-01-15 03:24 | disposition home or self-care (01) ==
LOC: ER 22:34
DX: T18.128A Food in esophagus causing other injury, initial encounter (principal); E03.9 Hypothyroidism, unspecified; J45.909 Unspecified asthma, uncomplicated; I10 Essential (primary) hypertension; E78.5 Hyperlipidemia, unspecified; Z79.82 Long term (current) use of aspirin; Z79.899 Other long term (current) drug therapy; Z88.1 Allergy status to other antibiotic agents; Z88.5 Allergy status to narcotic agent; Z88.0 Allergy status to penicillin; Z88.8 Allergy status to other drugs, medicaments and biological substances; X58.XXXA Exposure to other specified factors, initial encounter; Y92.9 Unspecified place or not applicable
CPT/HCPCS: 93005; 93010; 99283-25; A9270; J1610

== ENCOUNTER 2023-02-07 18:41 | Emergency (ER) | payer MEDICARE, OTHER ==
[~2023-02-07] VITALS: Ht 165.1 cm; Wt 74.8 kg
[2023-02-07 19:14] LABS: BASOPHILS ABSOLUTE AUTO 0.05 K/mm3 (0.00-0.23); BASOPHILS PERCENT AUTO 1 % (0-2); EOSINOPHILS ABSOLUTE AUTO 0.44 K/mm3 (0.00-0.68); EOSINOPHILS PERCENT AUTO 8 % (0-6); Hematocrit 41.4 % (33.0-51.0); Hemoglobin 13.5 g/dL (11.5-16.0); IMMATURE GRAN ABSOLUTE AUTO 0.01 K/mm3 (0.00-0.10); IMMATURE GRAN PERCENT AUTO 0 % (0-1); LYMPHOCYTES ABSOLUTE AUTO 1.72 K/mm3 (0.84-5.20); LYMPHOCYTES PERCENT AUTO 30 % (21-46); MONOCYTES ABSOLUTE AUTO 0.49 K/mm3 (0.16-1.47); MONOCYTES PERCENT AUTO 9 % (4-13); Mean Corpuscular HGB 29.9 pg (26.0-34.0); Mean Corpuscular HGB Conc 32.6 g/dL (31.5-36.5); Mean Corpuscular Volume 92 fL (80-100); Mean Platelet Volume 9.5 fL (9.1-12.4); NEUTROPHILS ABSOLUTE AUTO 2.95 K/mm3 (1.96-9.15); NEUTROPHILS PERCENT AUTO 52 % (41-73); Platelet Count 245 K/mm3 (150-400); RDW Coefficient Variation 13.3 % (11.7-14.2); RDW Standard Deviation 45.2 fL (35.1-46.3); Red Blood Cell Count 4.52 M/mm3 (3.80-5.20); White Blood Cell Count 5.66 K/mm3 (4.00-11.30)
[2023-02-07 19:33] LABS: Albumin, Blood 3.9 g/dL (3.4-5.0); Albumin/Globulin Ratio 1.1 (0.8-1.8); Bilirubin, Total 0.2 mg/dL (0.1-1.0); Bun/Creatinine Ratio 28.1 (12.0-20.0); Calcium, Blood 9.4 mg/dL (8.5-10.1); Creatinine, Blood 0.71 mg/dL (0.40-1.00); Globulin, Blood 3.5 g/dL (2.2-4.0); Potassium, Blood 4.1 mmol/L (3.5-5.5); Total Protein, Blood 7.4 g/dL (6.4-8.2)
[2023-02-07 21:30] VITALS: BP 141/85
== END 2023-02-07 22:09 | disposition left against medical advice (07) ==
LOC: ER 18:41
PROVIDERS: Student in an Organized Health Care Education/Training Program
DX: R07.9 Chest pain, unspecified (principal)
CPT/HCPCS: 71046; 80053; 83690; 84484; 85025; 93005; 93010; 99282-25

== ENCOUNTER 2023-04-30 21:17 | Emergency (ER) | payer MEDICARE, OTHER | END 2023-05-01 00:41 | disposition home or self-care (01) | LOC: ER 21:17 | DX: K57.32 Diverticulitis of large intestine without perforation or abscess without bleeding (principal); Z88.5 Allergy status to narcotic agent; Z88.0 Allergy status to penicillin; Z88.1 Allergy status to other antibiotic agents; Z88.2 Allergy status to sulfonamides; Z79.899 Other long term (current) drug therapy; Z79.82 Long term (current) use of aspirin; E03.9 Hypothyroidism, unspecified; J45.909 Unspecified asthma, uncomplicated; I10 Essential (primary) hypertension; E78.5 Hyperlipidemia, unspecified; Z85.3 Personal history of malignant neoplasm of breast ==

== ENCOUNTER 2023-11-08 17:35 | Emergency (ER) | payer MEDICARE, OTHER ==
[~2023-11-08] VITALS: Ht 165.1 cm; Wt 73.9 kg
[~2023-11-08 17:35] MED LIST changes: +CIPR500 PO; +METR500 PO
[2023-11-08 19:01] LABS: BASOPHILS ABSOLUTE AUTO 0.03 K/mm3 (0.00-0.23); BASOPHILS PERCENT AUTO 0 % (0-2); EOSINOPHILS ABSOLUTE AUTO 0.18 K/mm3 (0.00-0.68); EOSINOPHILS PERCENT AUTO 3 % (0-6); Hematocrit 40.7 % (33.0-51.0); Hemoglobin 13.4 g/dL (11.5-16.0); IMMATURE GRAN ABSOLUTE AUTO 0.01 K/mm3 (0.00-0.10); IMMATURE GRAN PERCENT AUTO 0 % (0-1); LYMPHOCYTES ABSOLUTE AUTO 1.67 K/mm3 (0.84-5.20); LYMPHOCYTES PERCENT AUTO 25 % (21-46); MONOCYTES ABSOLUTE AUTO 0.38 K/mm3 (0.16-1.47); MONOCYTES PERCENT AUTO 6 % (4-13); Mean Corpuscular HGB 29.3 pg (26.0-34.0); Mean Corpuscular HGB Conc 32.9 g/dL (31.5-36.5); Mean Corpuscular Volume 89 fL (80-100); Mean Platelet Volume 9.3 fL (9.1-12.4); NEUTROPHILS ABSOLUTE AUTO 4.48 K/mm3 (1.96-9.15); NEUTROPHILS PERCENT AUTO 67 % (41-73); Platelet Count 198 K/mm3 (150-400); RDW Coefficient Variation 14.4 % (11.7-14.2); RDW Standard Deviation 46.3 fL (35.1-46.3); Red Blood Cell Count 4.57 M/mm3 (3.80-5.20); White Blood Cell Count 6.75 K/mm3 (4.00-11.30)
[2023-11-08 19:24] LABS: Magnesium, Blood 2.4 mg/dL (1.6-2.4)
[2023-11-08 19:34] LABS: Albumin, Blood 3.8 g/dL (3.4-5.0); Albumin/Globulin Ratio 1.1 (0.8-1.8); Bilirubin, Total 0.4 mg/dL (0.1-1.0); Bun/Creatinine Ratio 20.7 (12.0-20.0); Calcium, Blood 9.6 mg/dL (8.5-10.1); Creatinine, Blood 0.68 mg/dL (0.40-1.00); Globulin, Blood 3.5 g/dL (2.2-4.0); Potassium, Blood 4.1 mmol/L (3.5-5.5); Total Protein, Blood 7.3 g/dL (6.4-8.2)
[2023-11-08 23:00] VITALS: BP 124/75
== END 2023-11-08 23:11 | disposition home or self-care (01) ==
LOC: ER 17:35
PROVIDERS: Physician Assistant
DX: M79.602 Pain in left arm (principal); R42 Dizziness and giddiness; E03.9 Hypothyroidism, unspecified; I10 Essential (primary) hypertension; E78.5 Hyperlipidemia, unspecified; J45.909 Unspecified asthma, uncomplicated; Z79.82 Long term (current) use of aspirin; Z79.899 Other long term (current) drug therapy; Z88.0 Allergy status to penicillin; Z88.1 Allergy status to other antibiotic agents; Z88.2 Allergy status to sulfonamides; Z88.5 Allergy status to narcotic agent; Z88.8 Allergy status to other drugs, medicaments and biological substances
CPT/HCPCS: 80053; 83735; 84484; 85025; 93005; 93010; 99283-25

== ENCOUNTER 2024-01-28 11:48 | Day surgery (SDC) | payer MEDICARE, OTHER ==
[~2024-01-28] VITALS: Ht 165.1 cm; Wt 76.5 kg
[~2024-01-28 11:48] MED LIST changes: +Atropine Sulfate 0.1 MG/ML 10ML SYR ONE; +Glycopyrrolate 0.2 MG/ML 1MLVIAL ONE; +Lactated Ringer's 1,000 ML IV ONE; +Lidocaine 2% 5 ML SDV ONE; +Lidocaine HCl/Pf 1% 5 ML VIAL ONE; +Methylene Blue 1% 100 MG/10 ML VIAL ONE; +Ondansetron HCl 2 MG / ML 2ML Vial ONE; +ePHEDrine Sulfate 50 MG/ML 1ML Injection ONE; +propofoL 50 ML IV ONE
[2024-01-28] MEDS ORDERED: Flonase 0.05% N16 GM (12:13)
[2024-01-28] MEDS ORDERED: FLUTICASONE-SA1 EAC1 (12:13)
[2024-01-28] MEDS ORDERED: ALLEGRA ALLERG180 MG (12:13)
[2024-01-28] MEDS ORDERED: C COMPLEX1000 M1 (12:13)
[2024-01-28] MEDS ORDERED: OMEP20ER (12:14)
[2024-01-28] MEDS ORDERED: MULVITA (12:14)
[2024-01-28] MEDS ORDERED: Crestor20 MG (12:14)
[2024-01-28] MEDS ORDERED: METPRE16 (12:14)
[2024-01-28] MEDS ORDERED: MELO7.5 (12:14)
[2024-01-28] MEDS ORDERED: Lactated Ringer's 1,000 ML IV ONE (12:39)
[2024-01-28 14:13] VITALS: BP 152/70
== END 2024-01-28 14:04 | disposition home or self-care (01) ==
LOC: ORSCSDS 11:48
PROVIDERS: Surgery
PROC: 0DB68ZX Excision of Stomach, Via Natural or Artificial Opening Endoscopic, Diagnostic (ICD-10-PCS; principal; 2024-01-28 13:00)
DX: R13.19 Other dysphagia (principal); K31.7 Polyp of stomach and duodenum; K29.50 Unspecified chronic gastritis without bleeding; K44.9 Diaphragmatic hernia without obstruction or gangrene; K21.9 Gastro-esophageal reflux disease without esophagitis; E78.5 Hyperlipidemia, unspecified; E03.9 Hypothyroidism, unspecified; Z85.3 Personal history of malignant neoplasm of breast; Z79.82 Long term (current) use of aspirin; Z79.899 Other long term (current) drug therapy
CPT/HCPCS: J0461; J2001; J2405; J2704; J7120; Q9968

== ENCOUNTER → 2024-10-16 | Outpatient (CLI) | payer MEDICARE, OTHER ==
[~2024-10-16] MED LIST changes: +ALLEGRA ALLERG180 MG; -Atropine Sulfate 0.1 MG/ML 10ML SYR ONE; +C COMPLEX1000 M1; +Crestor20 MG; +FLUTICASONE-SA1 EAC1; +Flonase 0.05% N16 GM; -Glycopyrrolate 0.2 MG/ML 1MLVIAL ONE; -Lactated Ringer's 1,000 ML IV ONE; -Lidocaine 2% 5 ML SDV ONE; -Lidocaine HCl/Pf 1% 5 ML VIAL ONE; +MELO7.5; +METPRE16; +MULVITA; -Methylene Blue 1% 100 MG/10 ML VIAL ONE; +OMEP20ER; -Ondansetron HCl 2 MG / ML 2ML Vial ONE; -ePHEDrine Sulfate 50 MG/ML 1ML Injection ONE; -propofoL 50 ML IV ONE
[2024-10-16 12:37] LABS: BASOPHILS ABSOLUTE AUTO 0.06 K/mm3 (0.00-0.23); BASOPHILS PERCENT AUTO 1 % (0-2); EOSINOPHILS ABSOLUTE AUTO 0.43 K/mm3 (0.00-0.68); EOSINOPHILS PERCENT AUTO 6 % (0-6); Hematocrit 36.4 % (33.0-51.0); Hemoglobin 11.8 g/dL (11.5-16.0); IMMATURE GRAN ABSOLUTE AUTO 0.02 K/mm3 (0.00-0.10); IMMATURE GRAN PERCENT AUTO 0 % (0-1); LYMPHOCYTES ABSOLUTE AUTO 1.55 K/mm3 (0.84-5.20); LYMPHOCYTES PERCENT AUTO 21 % (21-46); MONOCYTES ABSOLUTE AUTO 0.45 K/mm3 (0.16-1.47); MONOCYTES PERCENT AUTO 6 % (4-13); Mean Corpuscular HGB 28.9 pg (26.0-34.0); Mean Corpuscular HGB Conc 32.4 g/dL (31.5-36.5); Mean Corpuscular Volume 89 fL (80-100); Mean Platelet Volume 9.1 fL (9.1-12.4); NEUTROPHILS PERCENT AUTO 67 % (41-73); Platelet Count 290 K/mm3 (150-400); RDW Coefficient Variation 13.5 % (11.7-14.2); RDW Standard Deviation 43.8 fL (35.1-46.3); Red Blood Cell Count 4.09 M/mm3 (3.80-5.20); White Blood Cell Count 7.51 K/mm3 (4.00-11.30)
[2024-10-16 13:39] LABS: Albumin, Blood 3.5 g/dL (3.4-5.0); Bilirubin, Total 0.2 mg/dL (0.1-1.0); Bun/Creatinine Ratio 30.8 (12.0-20.0); Creatinine, Blood 0.59 mg/dL (0.40-1.00); Globulin, Blood 3.5 g/dL (2.2-4.0); Potassium, Blood 4.1 mmol/L (3.5-5.5)
== END | disposition home or self-care (01) ==
LOC: LAB 12:31 → LAB SHORT 12:31
PROVIDERS: Chiropractor
DX: E16.2 Hypoglycemia, unspecified (principal); R10.13 Epigastric pain
CPT/HCPCS: 80053; 83036; 83690; 85025

== ENCOUNTER → 2025-03-24 | Outpatient (CLI) | payer MEDICARE, OTHER | LOC: LAB SHORT 13:15 → LAB 13:15 | DX: R60.0 Localized edema (principal) | CPT/HCPCS: 85379 ==

== ENCOUNTER 2025-05-25 06:51 | Day surgery (SDC) | payer MEDICARE, OTHER ==
[~2025-05-25] VITALS: Ht 165.1 cm; Wt 70.6 kg
[2025-05-25] VITALS (13 sets, daily range): BP systolic 120–147; BP diastolic 61–96
[~2025-05-25 06:51] MED LIST changes: -ALLEGRA ALLERG180 MG; +ALLEGRA ALLERG180 MG PO; +Crestor PO; -Crestor20 MG; -MELO7.5; +MELO7.5 PO; -MULVITA; +MULVITA PO; -OMEP20ER; +PREGABALIN25 MG PO; +[UNRECOGNIZED DRUG - OTHER] PO
[2025-05-25] MEDS ORDERED: Mepivacaine MPF 2% Inj 20 ML Vial INJ SCH (07:50)
[2025-05-25] MEDS ORDERED: CeFAZolin Sodium 2,000 MG in NS 100 ML IV SCH ×2 (07:55→17:30)
[2025-05-25] MEDS ORDERED: Ropivacaine 0.5% HCl/Pf 123.125 MG,EPINEPHrine HCL 0.25 MG,Ketorolac Tromethamine 15 MG... INFIL SCH (07:55)
[2025-05-25] MEDS ORDERED: Chlorhexidine Mouth Care 15 ML UDC MT SCH (07:55)
[2025-05-25] MEDS ORDERED: Tranexamic Acid 100 ML IV SCH (07:57)
[2025-05-25] MEDS ORDERED: METO10 PO (08:06)
[2025-05-25] MEDS ORDERED: Mepivacaine MPF 2% Inj 20 ML Vial ONE (08:16)
[2025-05-25] MEDS ORDERED: FentaNYL Citrate 50 MCG/ML 2 ML Injection ONE ×2 (08:18→10:01)
--- NOTE | 2025-05-25 08:29 | NUR ---
AMBULATORY INTO [facility]. PT IS A&OX3. PT REPORTS 8/10 LEFT KNEE PAIN. LEFT KNEE WITH BRUISING NOTED.PT DOES NOT REPORT ANXIETY. REVIEWED PT ALLERGIES AT LENGTH. HISTORY REVIEWED. LUNGS CLEAR. NPO STATUS CONFIRMED. CHLORHEXIDINE SHOWER AND WIPES X2. PT BELONGINGS GIVEN TO HER REEMA.
[2025-05-25] MEDS ORDERED: Midazolam HCl 1MG / ML 2ML Vial ONE (09:09)
[2025-05-25] MEDS ORDERED: Dexamethasone Sod Phos 10 MG/ML 1ML VIAL ONE (09:30)
[2025-05-25] MEDS ORDERED: HYDROmorphone HCl/Pf 1MG SYR ONE ×2 (10:16→11:46)
[2025-05-25] MEDS ORDERED: HYDROcodone 5-APAP 325 TAB PO PRN (10:20)
[2025-05-25] MEDS ORDERED: Ondansetron HCl 2 MG / ML 2ML Vial IV PRN ×2 (10:30→11:25)
[2025-05-25] MEDS ORDERED: Metoclopramide HCl 5MG / ML 2ML Vial IV PRN (10:30)
[2025-05-25] MEDS ORDERED: Magnesium Hydroxide Conc 10 ML UDC PO PRN (10:30)
[2025-05-25] MEDS ORDERED: HYDROmorphone HCl/Pf 1MG SYR IV PRN ×2 (10:35→11:25)
[2025-05-25] MEDS ORDERED: Rocuronium Bromide 10 MG/ML 5ML Injection IV ONE ×2 (10:59→11:00)
[2025-05-25] MEDS ORDERED: Ondansetron HCl 2 MG / ML 2ML Vial ONE (11:00)
[2025-05-25] MEDS ORDERED: Phenylephrine HCl 100 MCG/ML-NS 10MLSYR (1MG/10ML) ONE (11:01)
[2025-05-25] MEDS ORDERED: Sugammadex Sodium 200 MG/2ML SDV (100 MG/ML) ONE (11:01)
[2025-05-25] MEDS ORDERED: Labetalol HCL 5 MG/ML 4ML Injection (Single Dose) IV PRN (11:25)
[2025-05-25] MEDS ORDERED: FentaNYL Citrate 50 MCG/ML 2 ML Injection IV PRN (11:25)
[2025-05-25] MEDS ORDERED: Ketorolac Tromethamine 30mg Vial IV PRN (11:30)
[2025-05-25] MEDS ORDERED: Ketorolac Tromethamine 15mg Vial IV SCH (12:00)
--- NOTE | 2025-05-25 12:34 | NUR ---
ARRIVAL NOTE: PT ARRIVES TO SURGICAL FLOOR AT APPROX 1205 VIA BED. PT IS ALERT AND ORIENTED WITH PAIN MANAGED PER EMAR. SEE EXT RECOVERY ASSESSMENT
--- NOTE | 2025-05-25 18:04 | NUR ---
DISCHARGE NOTE: PT VOIDING WITHOUT DIFFICULTY. SHE IS TOLERATING PO INTAKE. PAIN IS MANAGED PER EMAR. PT'S TO DRIVE HOME. PT AND STATE VERBAL UNDERSTANDING OF DISCHARGE INSTRUCTIONS AND POST OP CARE. PIV REMOVED PRIOR TO DISCHARGE.
[2025-05-26] MEDS ORDERED: Multivitamins 1 Tab PO SCH (09:00)
== END 2025-05-25 17:28 | disposition home or self-care (01) ==
LOC: ORSCMMR 06:51 → ORD 08:15 → ORSCMMR 08:15 → SURS 12:08 → ORSCMMR 17:28 → SURS 17:28
PROVIDERS: Orthopaedic Surgery
PROC: 0SRD0JA Replacement of Left Knee Joint with Synthetic Substitute, Uncemented, Open Approach (ICD-10-PCS; principal; 2025-05-25 08:15)
DX: M17.12 Unilateral primary osteoarthritis, left knee (principal); I10 Essential (primary) hypertension; E78.5 Hyperlipidemia, unspecified; E03.9 Hypothyroidism, unspecified; K21.9 Gastro-esophageal reflux disease without esophagitis; Z79.82 Long term (current) use of aspirin; Z79.899 Other long term (current) drug therapy
CPT/HCPCS: 73560-LT; 97110; 97116; 97162; 97530; A9270; C1713; C1776; J0166; J0670; J0690; J0735; J1100; J1171; J1885; J2250; J2371; J2405; J2704; J2765; J2795; J3010; J7120

== ENCOUNTER → 2025-09-01 | Outpatient (CLI) | payer MEDICARE, OTHER ==
[2025-09-01 21:58] LABS: Campylobacter Sp Not Detected (NOT DETECT); E. Coli O157 Not Detected (NOT DETECT); Enteroaggregative E. coli-EAEC Not Detected (NOT DETECT); Enteropathogenic E. coli-EPEC Not Detected (NOT DETECT); Enterotoxigenic E. coli-ETEC Not Detected (NOT DETECT); Salmonella Sp Not Detected (NOT DETECT); Shiga Toxin-prod E. coli-STEC Not Detected (NOT DETECT); Shigella/Enteroin E. coli-EIEC Not Detected (NOT DETECT); Vibrio Sp Not Detected (NOT DETECT)
== END ==
LOC: LAB SHORT 13:20 → LAB 13:20
PROVIDERS: Physician Assistant Medical
DX: R10.84 Generalized abdominal pain (principal); R19.7 Diarrhea, unspecified
CPT/HCPCS: 87507